=== PATIENT | male | born 1960 | race Caucasian/White ===

== ENCOUNTER 2018-05-11 14:36 | Emergency (ER) | payer SELFPAY ==
[~2018-05-11] VITALS: Ht 175.3 cm; Wt 83.9 kg
[2018-05-11 14:46] VITALS: Ht 175.3 cm; Wt 83.9 kg
[2018-05-11 16:22] VITALS: BP 140/86
== END 2018-05-11 16:23 | disposition home or self-care (01) ==
LOC: D.ER 14:36
DX: F10.129 Alcohol abuse with intoxication, unspecified (principal); F17.200 Nicotine dependence, unspecified, uncomplicated